=== PATIENT | male | born 1970 | race Caucasian/White ===

== ENCOUNTER 2019-01-06 07:25 | Inpatient (IN) ==
--- NOTE | 2018-12-30 08:50 | Anesthesiology Consultation ---
Date of Service December 30, 2018 Assessment & Plan (1) Encounter for pre-operative examination: Chart Review Chart Review: Acceptable Risk for Surgery and Patient NOT seen in Pre Admission Testing History Surgery Operation Date: 12/31/18 09:50 Proposed Procedures p Left Tibia Intramedullary Nail - Camilo Deluna DO Height/Weight Height: 6 ft 2 in Weight: 131.542 kg Allergies Allergy/AdvReac Type Severity Reaction Status Date / Time No Known Allergies Allergy Unknown Verified 12/29/18 14:47 Medications Home Medications Medication Instructions Recorded Confirmed Last Taken oxycodone 5 mg PO Q4H PRN #18 tab 12/28/18 12/29/18 Unknown Past Medical History Medical History Closed fracture of left fibula and tibia Kidney stones Obesity Past Surgical History Surgical History History of appendectomy Social History Smoking Status: Never smoker Do You Dip or Chew Tobacco: No Hx Alcohol Use: No Hx Substance Use: No substance use type: does not use Testing Laboratory Results 12/29/18 WBC 10.40 H/H 15.2/45.7 PLT 258
--- NOTE | 2019-01-05 21:55 | History and Physical Report ---
DATE OF ADMISSION: 01/06/2019 CHIEF COMPLAINT: Left tib-fib fracture. 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 He injured this a little bit over a week ago. He was getting out of his truck and slipped on the ice and fell. This was a work-related injury. He was taken to [facility] and then referred to Dr. Deluna, my partner. He is now referred to me. We did do a closed reduction and the results of that were a bit equivocal. We discussed treatment options and he has elected to proceed with surgical treatment. He has been pretty miserable as far as pain. Of note, the patient does have a history of an open fracture proximal to this fracture at the age of [age] treated with a cast. He has had no problems with infection with this. PAST MEDICAL HISTORY: Noncontributory. PAST SURGICAL HISTORY: Appendectomy. ALLERGIES: None. CURRENT MEDICATIONS: 1. Tylenol. 2. Oxycodone. SOCIAL HISTORY: He is a 48-year-old male. Works for [employer]. He is . FAMILY HISTORY: Noncontributory. REVIEW OF SYSTEMS: Negative for diabetes, neurologic problems, vascular problems, or bleeding disorders. Denies any chest pain or shortness of breath. No signs of DVT or PE. PHYSICAL EXAMINATION: GENERAL: Reveals a healthy, pleasant, middle-aged male. He looks to be in good health. HEENT: Benign. NECK: Supple. No lymphadenopathy. LUNGS: Clear to auscultation. HEART: Regular rate and rhythm. ABDOMEN: Soft, nontender, nondistended. EXTREMITIES: Grossly neurovascularly intact except as follows: Examination of the left lower extremity with the splint removed, just some moderate swelling distally. The proximal bone is a bit prominent and palpable in the soft tissues, but there is no real tenting of the skin. His compartments are pretty soft with some mild swelling. No fracture blisters. He can flex and extend his toes appropriately. He does have quite a bit of pain with any type of mobilization. X-RAYS: X-rays of the left tibia reveal a displaced tib-fib fracture at the distal third fracture. The fibular fracture is proximal. He does have a malunion proximal to this. There are no signs of underlying infection. ASSESSMENT: A 48-year-old gentleman with a left distal tib-fib fracture, somewhat displaced. It is kind of at the border of what is acceptable as far as treating conservatively/nonoperatively. He also has this previous malunion, which makes surgical treatment a bit more challenging. He has been pretty miserable the past week with pain and after further discussion he would like to have this fixed. PLAN: We discussed treatment options. We are going to take him to the operating room and do open reduction internal fixation. We cannot put a alvarez in this due to the malunion proximal, but we can plate this. The risks and benefits of plate and the tibia were explained to the patient including but not limited to DVT, PE, , infection, neurological injury, neurovascular injury, bleeding problem, pain, limited range of motion, stiffness, failure to relieve symptoms, incomplete relief of symptoms, nonunion, malunion, persistent pain, need for hardware removal. The patient understands and desires to proceed. Informed consent was obtained.. We will plan on DVT prophylaxis including aspirin twice a day. He will be nonweightbearing for 4 weeks postop. We will keep him overnight to make sure his pain is controlled in terms of therapy the following morning and hopefully discharge after that.
[~2019-01-06 07:25] MED LIST: ACETAMINOPHEN 500 MG TAB PO SCH; CEFAZOLIN 3000MG 65 ML IV SCH; CeleBREX 200 MG CAP PO SCH; FAMOTIDINE 20 MG TAB PO SCH; GABAPENTIN 300 MG x 3 PO SCH; LR 15ML/HR IV SCH; LR 60ML/HR IV SCH; METOCLOPRAMIDE HCL 10 MG TABLET PO SCH; SODIUM CHLORIDE 0.9% 1000ML IV SCH
--- NOTE | 2019-01-06 08:36 | History & Physical Bridge Note ---
Date of Service January 06, 2019 History & Physical Bridge Note I have examined the patient, reviewed the History & Physical and in the interval since the performance of the History & Physical I have noted the following changes of clinical significance: no changes noted
[2019-01-06] MEDS ORDERED: ONDANSETRON INJ 2 MG/ML 2 ML VIAL IV PRN ×2 (08:59→13:17)
[2019-01-06] MEDS ORDERED: DEXAMETHASONE SOD INJ 4 MG/ML VIAL IV PRN (08:59)
[2019-01-06] MEDS ORDERED: ATROPINE SULFATE 0.1 MG/ML 10ML SYR IV PRN (08:59)
[2019-01-06] MEDS ORDERED: MoRPHine SULFATE 10 MG/ML CARP/VIAL IV PRN (08:59)
[2019-01-06] MEDS ORDERED: KETOROLAC 30 MG/ML VIAL IV PRN ×2 (08:59→13:17)
[2019-01-06] MEDS ORDERED: HYDROmorphone INJ 2 MG/ML SYR/VIAL IV PRN (08:59)
[2019-01-06] MEDS ORDERED: ePHEDrine sulfate 50 MG/ML AMP IV PRN (08:59)
[2019-01-06] MEDS ORDERED: DEXAMETHASONE SOD INJ 4 MG/ML VIAL ONE (09:06)
[2019-01-06] MEDS ORDERED: GLYCOPYRROLATE 0.2 MG/ML VIAL ONE ×3 (09:06→11:50)
[2019-01-06] MEDS ORDERED: PROPOFOL IV EMULSION 10 MG/ML 20 ML VIAL IV ONE (09:06)
[2019-01-06] MEDS ORDERED: LIDOCAINE HCL 2% 2 ML VIAL/AMP(20MG/ML) INFIL ONE (09:06)
[2019-01-06] MEDS ORDERED: NEOSTIGMINE METHYLSULFATE 5 MG/5 ML SYR ONE (09:06)
[2019-01-06] MEDS ORDERED: ONDANSETRON INJ 2 MG/ML 2 ML VIAL ONE (09:06)
[2019-01-06] MEDS ORDERED: MIDAZOLAM HCL 1 MG/ML 2ML VIAL ONE (09:07)
[2019-01-06] MEDS ORDERED: fentaNYL citrate 100 MCG/2 ML VIAL ONE ×2 (09:07)
[2019-01-06] MEDS ORDERED: BUPIVACAINE/EPINEPHRINE 0.5% MPF 1:200,000 30 ML VIAL ONE (09:16)
[2019-01-06] MEDS ORDERED: ACETAMINOPHEN 500 MG TAB ONE (09:20)
[2019-01-06] MEDS ORDERED: CeleBREX 200 MG CAP ONE (09:20)
[2019-01-06] MEDS ORDERED: METOCLOPRAMIDE HCL 10 MG TABLET ONE (09:20)
[2019-01-06] MEDS ORDERED: GABAPENTIN 300 MG CAP ONE (09:20)
[2019-01-06] MEDS ORDERED: FAMOTIDINE 20 MG TAB ONE (09:20)
[2019-01-06] MEDS: CEFAZOLIN 3000MG 65 ML IV SCH ×2 (09:26→09:34)
[2019-01-06] MEDS ORDERED: HYDROmorphone INJ 2 MG/ML SYR/VIAL ONE (10:09)
[2019-01-06] MEDS ORDERED: LARYING-O-JET KIT (LTA) ONE (10:22)
[2019-01-06] MEDS ORDERED: ESMOLOL HCL INJ 10 MG/ML 10ML VIAL IV ONE (10:25)
[2019-01-06] MEDS ORDERED: ROCURONIUM BROMIDE 10 MG/ML 5 ML VIAL ONE (11:27)
--- NOTE | 2019-01-06 11:56 | Post Operative Brief Note ---
Immediate Post Op Note v1 Date of Surgery January 06, 2019 Pre & Post Diagnosis Operation Date: 01/06/19 10:00 Pre-Op Diagnosis: Left Distal Tibia Fracture and Fibula Fracture Post-Op Diagnosis: Left Distal Tibia Fracture and Fibula Fracture Procedure Operation Date: 01/06/19 10:00 Actual Procedures p Open Reduction Internal Fixation Left Tibia Shaft Fracture (Left) - Cristino Cobos MD Surgeon Cristino Cobos MD Accident Investigator Ovidio, PAC Estimated Blood Loss 30 Findings Consistent with Post-Op Diagnosis Fluids 1300 Anesthesia Type General Complications none Disposition Accompanied Patient To Recovery: No Disposition: Recovery Room
--- NOTE | 2019-01-06 11:59 | Fluoroscopy Report ---
FL tibia/fibula LT 2V HISTORY: 48 years-old Male LEFT TIB FIB FX ORIF ORIF of the left tibia COMPARISON: Left tibia and fibula radiographs 12/28/2018 TECHNIQUE: 3 spot fluoroscopic images about the left tibia and fibula were obtained utilizing 33.1 se conds fluoroscopy time FINDINGS: Status post placement of an elongated plate and screw fixation about the mid and distal tibial diaphy sis. There is improved near-anatomic alignment of the previously noted acute tibial fracture. Previou sly noted proximal fibular fracture is not imaged. IMPRESSION: Fluoroscopic assistance as above. Please see operative report for further details. The above report was generated using voice recognition software. It may contain grammatical, syntax o r spelling errors. Electronically signed by: García Carvalho M.D. 01/06/2019 11:58 AM
[2019-01-06] MEDS: fentaNYL citrate 100 MCG/2 ML VIAL IV PRN ×2 (12:17→12:27)
[2019-01-06] MEDS ORDERED: METOCLOPRAMIDE HCL INJ 5 MG/ML 2 ML VIAL IV PRN (13:17)
[2019-01-06] MEDS ORDERED: BISACODYL 10 MG SUPP PR PRN (13:17)
[2019-01-06] MEDS ORDERED: MoRPHine SULFATE 4 MG/ML 1 ML CARP\\VIAL IV PRN (13:17)
[2019-01-06] MEDS ORDERED: OXYCODONE HCL IR 5 MG TAB (IMMEDIATE RELEASE) PO PRN ×2 (13:17)
[2019-01-06] MEDS ORDERED: MAGNESIUM HYDROXIDE SUSP 30 ML UDC PO PRN (13:17)
[2019-01-06] MEDS ORDERED: ALUMINUM/MAGNESIUM SUSP 30 ML UDC PO PRN (13:17)
--- NOTE | 2019-01-06 13:19 | Anesthesiology Progress Note ---
Date of Service January 06, 2019 Anesthesia Post Procedure Vital Signs Vital Signs: Temp Pulse Pulse Pulse Resp BP BP 01/06/19 12:50 101 H 17 127/83 01/06/19 12:45 97 H 12 142/87 H 01/06/19 12:40 102 H 14 133/87 01/06/19 12:35 97 H 14 131/86 01/06/19 12:30 97 H 14 133/89 01/06/19 12:25 97 H 14 140/93 01/06/19 12:20 96 H 12 129/85 01/06/19 12:15 92 H 14 146/90 H 01/06/19 12:10 97 H 14 143/95 H 01/06/19 12:05 100 H 15 141/92 H 01/06/19 12:04 87 13 01/06/19 12:03 36.5 C 86 90 13 146/91 H 146/91 H 01/06/19 07:59 36.6 C 95 H 20 133/90 Pulse Ox 01/06/19 12:50 92 01/06/19 12:45 95 01/06/19 12:40 95 01/06/19 12:35 95 01/06/19 12:30 95 01/06/19 12:25 95 01/06/19 12:20 92 01/06/19 12:15 93 01/06/19 12:10 95 01/06/19 12:05 93 01/06/19 12:04 93 01/06/19 12:03 93 01/06/19 07:59 99 Pain Intensity Left Lower Leg: Pain Intensity: 4 Notes Mental Status: alert / awake / arousable and participated in evaluation Patient Amnestic to Procedure: Yes Nausea / Vomiting: adequately controlled Pain: adequately controlled Airway Patency, RR, SpO2: stable & adequate BP & HR: stable & adequate Hydration State: stable & adequate Anesthetic Complications: no major complications apparent
[2019-01-06] MEDS: ACETAMINOPHEN 500 MG TAB PO SCH ×2 (14:31→21:14)
[2019-01-06] MEDS: POTASSIUM CHLORIDE 10 MEQ in SODIUM CHLORIDE 0.9% 1000ML 1,000 ML IV SCH (14:31)
--- NOTE | 2019-01-06 15:32 | Operative Report ---
DATE OF OPERATION: 01/06/2019 SURGEON: Cristino Cobos MD AOC DIRECTOR COMBAT PLANS OFFICER: NINO Joaquin PREOPERATIVE DIAGNOSIS: Displaced left distal tib-fib fracture. POSTOPERATIVE DIAGNOSIS: Displaced left distal tib-fib fracture. PROCEDURE: Open reduction internal fixation of left displaced tibia fracture. COMPLICATIONS: None. ESTIMATED BLOOD LOSS: 30 mL. FLUID REPLACEMENT: 1300 mL crystalloid fluid replacement. ANESTHESIA: General. SPECIMENS: None. OPERATIVE INDICATIONS: The patient is a 48-year-old gentleman who sustained a work-related injury just a little over a week ago when he slipped while getting out of his vehicle. He had acute onset of pain and deformity. He was taken to the Emergency Room. X-rays revealed distal tib-fib fracture. He was treated with a closed reduction initially and was pretty manageable pain hwang. The closed reduction and alignment looked on the borderline of acceptable and after considering all things, we elected to proceed with surgical management. He does have a history of previous malunion and therefore not a candidate for IM nailing. OPERATIVE IMPLANTS: Operative implants consisted of: 1. A Synthes 13-hole 3.5 anterior lateral left tibial locking plate. 2. 3.5 fully threaded cortical screws x3. 3. 4.0 fully threaded cancellous screws x2. 4. 3.5 fully threaded cortical locking screws x10. OPERATIVE PROCEDURE: The patient was taken to the operating room, identified and placed on operative table in supine position. All contact areas were appropriately padded. IV antibiotics were provided by anesthesia team. A general anesthetic was implemented by anesthesia team. In the left lower extremity, a long leg cast was then removed and a left thigh tourniquet was then placed. We did shave the anterior aspect of his legs with the clippers. The left leg was then scrubbed with Hibiclens. It was then prepped with ChloraPrep and then draped in usual sterile fashion. Left leg was elevated and exsanguinated with Esmarch and tourniquet was placed at 300 mmHg. An anterior lateral approach to the distal tibia was then performed through a longitudinal incision beginning about a cm lateral to the anterior crest of the tibia and extending distally over the top of the dorsal forefoot. Sharp dissection was carried out through subcutaneous tissue down to the fascia. The fascia was then incised longitudinally just lateral to the anterior border of the tibial cortex and extended distally and medial to the tibialis anterior tendon. All extensor tendons and neurovascular bundles were retracted laterally. I exposed the fracture site which was quite easily done. I did debride the fracture site of some hematoma as well as some soft tissue and periosteum. We then applied some traction and reduced the fracture anatomically and held with 2 reduction clamps. I fixed it with two 3.5 fully threaded cortical screws placed in a lag fashion from anterior to posterior. I then selected an anterior lateral distal tibial locking plate from the Synthes set with a 13-hole configuration. I fixed it distally with two 4.0 fully threaded cancellous screws to fix it down to the bone and then proximally with a single 3.5 fully threaded cortical screw to snug the proximal plate to the bone. I then placed 5 additional locking screws distally through the plate to provide distal fixation and placed 4 additional 3.5 locking screws proximally. It provided excellent fixation for the fracture. The fracture was anatomically reduced and aligned. I then brought in x-ray and all screws were appropriate length. The fracture was anatomically aligned. Attention was then drawn toward closing. The wound was irrigated with copious amounts of normal saline. I did inject locally with 30 mL of 0.5% Marcaine with epinephrine. The extensor retinaculum distally was then closed with 2-0 Vicryl suture in a [id number] fashion. I cannot close the anterior compartment of the leg fascia. The tourniquet was then let down for a tourniquet time of 76 minutes. Hemostasis was assured using electrocautery. The wound was once again irrigated. Subcutaneous tissues were then closed with 2-0 Vicryl suture in a buried interrupted fashion. Skin was closed with 3-0 nylon suture in simple fashion. Leg was then cleaned and dried and a sterile dressing composed of Xeroform, 4 x 4, sterile cast padding and a well-padded posterior and stirrup splint were applied. The patient then brought out of general anesthesia and transferred to the recovery room in stable condition. The patient tolerated the procedure well with no complications. All needle and sponge counts were correct at the end of the operation. I attest to the content of the Intraoperative Record and any orders documented therein. Any exception s are noted below.
[2019-01-06] MEDS ORDERED: SODIUM CHLORIDE 0.9% 1000ML IV SCH (17:00)
[2019-01-06] MEDS: CEFAZOLIN 2000MG 2,000 MG/15 ML SYR IV SCH (18:16)
[2019-01-06] MEDS ORDERED: SENNA 8.6 MG TAB PO SCH (21:00)
[2019-01-06] MEDS: DOCUSATE SODIUM 100 MG CAP PO SCH (21:13)
[2019-01-06] MEDS: ASPIRIN 81 MG ECTAB PO SCH (21:14)
[2019-01-07] MEDS: CEFAZOLIN 2000MG 2,000 MG/15 ML SYR IV SCH (00:04)
[2019-01-07] MEDS: POTASSIUM CHLORIDE 10 MEQ in SODIUM CHLORIDE 0.9% 1000ML 1,000 ML IV SCH (00:05)
[2019-01-07] MEDS ORDERED: Nursing to Pharmacy Communication ONE (03:36)
--- NOTE | 2019-01-07 08:15 | Progress Note ---
DATE: 01/07/2019 SUBJECTIVE: A 48-year-old gentleman postop day 1 from ORIF of left distal tibia fracture. He is doing quite well. Pain is controlled. No chest pain or shortness of breath. Not feeling dizzy or lightheaded. OBJECTIVE: VITAL SIGNS: Temperature 36.5. Vital signs stable. PHYSICAL EXAMINATION: GENERAL: Reveals a pleasant, middle-aged male. He is sitting up in bed, looks pretty comfortable. EXTREMITIES: Examination of left leg reveals the dressing to be clean, dry, and intact. He can dorsiflex and plantarflex his toes appropriately. He is neurologically intact. ASSESSMENT: A 48-year-old gentleman postop day 1 from left tibia ORIF, doing well. Pain is controlled. He is neurologically intact. PLAN: 1. DVT prophylaxis including thigh-high TEDs, SCDs, and aspirin twice a day. 2. PT/OT. He is nonweightbearing on his left leg for the next 4 weeks. 3. PT, OT. We will give him some therapy and make sure he is using the crutches appropriately. 4. Disposition: Plan to discharge to home and I will follow him back in 2 weeks.
[2019-01-07] MEDS: DOCUSATE SODIUM 100 MG CAP PO SCH (08:21)
[2019-01-07] MEDS: ASPIRIN 81 MG ECTAB PO SCH (08:22)
[2019-01-07] MEDS ORDERED: MULTIVITAMIN TAB PO SCH (09:00)
[2019-01-07] MEDS ORDERED: PANTOprazole 40 MG TAB PO SCH (09:00)
[2019-01-07] MEDS ORDERED: ACETAMINOPHEN 500 MG TAB PO SCH (10:00)
--- NOTE | 2019-01-08 16:27 | Discharge Summary ---
ADMITTING PHYSICIAN AND SURGEON: Cristino Cobos MD. ADMITTING DIAGNOSIS: Displaced left distal tibial-fibular fracture. PROCEDURE PERFORMED: Open reduction and internal fixation of a left displaced tibia fracture. SECONDARY DIAGNOSIS: Noncontributory. CONSULTS: None obtained. HISTORY AND PHYSICAL EXAMINATION: Well-documented in the patient's chart. HOSPITAL COURSE: The patient was admitted on 01/06/2019, underwent an open reduction and internal fixation of a displaced tibia fracture. He tolerated the procedure well. There were no complications. He was transferred to the PACU postoperatively and later to the orthopedic floor for further care. He was given Ancef for antibiotic prophylaxis, FARHAN stockings and SCDs and aspirin for DVT prophylaxis. Vital signs were monitored throughout his hospital stay and remained stable. He did not require any blood transfusions. There were no complications. By postoperative day 1, he was tolerating a regular diet, pain was controlled with oral pain medicine. On postoperative day 1, he was discharged home. He was given printed discharge instructions including new prescriptions for extra-strength Tylenol, aspirin and oxycodone. He was instructed also to continue nonweightbearing to the left leg for the next 4 weeks. Keep the splint, clean and dry and in place until followup appointment, elevate his left leg as much as possible. Follow up in approximately 2 weeks postoperatively or sooner if there are any problems or concerns.
== END 2019-01-07 11:51 | disposition home or self-care (01) | DRG 494 ==
LOC: ASU 07:25 → 3E 12:03

== ENCOUNTER 2020-12-22 16:52 | Inpatient (IN) ==
--- OUTSIDE RECORDS SUMMARY | 2020-12-22 16:55 | External Medical Summary | Continuity of Care Document ---
:1970 Author Name Shirley Gay, Provider Address Unavailable Unavailable , Care Team Providers Name Role Phone NonMNPG MThierry, Provider Unavailable [email or web address], UNKNOWN Unavailable Unavailable Problems Active medical history not documented Allergies and Adverse Reactions Allergy history not documented Medications Medications not documented Procedures Procedures not documented Immunizations Immunizations not documented Plan of Treatment Planned Observations Planned Goals not documented Results No Known Results Results not documented
--- OUTSIDE RECORDS SUMMARY | 2020-12-22 16:55 | External Medical Summary | Continuity of Care Document ---
:1970 Author Name Shirley Gay, Provider Address Unavailable Unavailable , Care Team Providers Name Role Phone NonMNPG MThierry, Provider Unavailable [email or web address], UNKNOWN Unavailable Unavailable Problems Active medical history not documented Allergies and Adverse Reactions Allergy history not documented Medications Medications not documented Procedures Procedures not documented Immunizations Immunizations not documented Plan of Treatment Planned Observations Planned Goals not documented Results No Known Results Results not documented
--- NOTE | 2020-12-22 19:14 | Emergency Department Note ---
Impression & Plan Diverticulitis, Abdominal pain ED Provider Note NAME: CHATO LEYVA AGE: 50 SEX: M : 1970 ARRIVES VIA: Walk-In INFORMANT: Patient, ED PROVIDER(S): Nicolas Cleaning DO CHIEF COMPLAINT: Abdominal pain HPI: The patient is a 50-year-old male who presented to the emergency department for an evaluation of abdominal pain. The patient describes left lower quadrant abdominal pain which began yesterday. He states the pain began yesterday in the morning. Initially it was vague and appeared to be on his left side. It now is localized in the left lower quadrant. He states the pain is worsened with sitting down and also relieved somewhat with standing up and stretching. He does not feel any bulging in his left groin or testicular pain. He states that he had a kidney stone once with the pain is not completely the same. He denies having any fever or vomiting. He said no diarrhea. He did not see his provider for this pain. The pain continued to worsen so he took [id number] pain medication with only little relief. The patient has never had a history of diverticulitis in the past. ROS: See above HPI for pertinent positives & negatives. A total of 10 systems reviewed and were otherwise negative. PAST MEDICAL HISTORY: See Below PAST SURGICAL HISTORY: See Below FAMILY HISTORY: See Below SOCIAL HISTORY: See Below HOME MEDICATIONS: See Below ALLERGIES: See Below VITALS: See Below PHYSICAL EXAMINATION: GENERAL: Patient is awake alert in no acute distress patient is resting comf ortably and showing no signs of anxiety EYES: The conjunctivae are clear. The pupils are round and reactive. EARS, NOSE, MOUTH AND THROAT: The nose is without any evidence of any deformity. Mucous membranes are moist. Tongue is midline. NECK: The neck is nontender and supple. RESPIRATORY: Normal respiratory effort is noted there is no evidence of wheezing rhonchi or rales CARDIOVASCULAR: Tachycardic rate with regular rhythm was noted. There was no definite murmur. GASTROINTESTINAL: The abdomen was mildly distended but soft. There was significant left lower quadrant tenderness palpation. BACK: No midline tenderness or or step-off noted range of motion in flexion extension as well as rotation no signs of muscle spasm noted MUSCULOSKELETAL/EXTREMITIES: There is no evidence of gross deformity full range of motion is noted in the hips and shoulders. SKIN: There is no obvious evidence of any rash. There are no petechiae, pallor or cyanosis noted. NEUROLOGIC: Patient is awake alert and oriented x3. MEDICAL DECISION MAKING: The patient is a 50-year-old male who presented to the emergency department for an evaluation of left-sided abdominal pain. The patient's history and physical exam appear to be consistent with diverticulitis. He was treated with IV fluids and IV antibiotics. The patient's CAT scan appear to show diverticulitis with microperforation. There was no definite abscess formation. The patient was reevaluated multiple times. He continued to have improvement of his symptoms as well as his tachycardia. Given the findings of microperforation I discussed his case with the on-call [facility]. They have agreed to evaluate the patient in the emergency department for further management and disposition. The patient was agreeable to inpatient management. Triage Nursing notes reviewed. Prior medical records reviewed Vital Signs: reviewed and remarkable for tachycardia. Differential diagnosis: Appendicitis, testicular torsion, infections, diverticulitis, UTI, obstruction, mesenteric ischemia, aortic pathology, inflammatory bowel disease, renal colic, PUD, pancreatitis, biliary pathology, hernia, volvulus, constipation, as well as other pathologies. ER treatment provided: See below Diagnostics interpreted by me: ECG: none Cardiac Monitoring: An order was placed for continuous cardiac monitoring. The monitor shows a rate of 108 bpm with sinus tachycardia rhythm. Laboratory studies: As stated above and show below. Imaging studies: See below Consultation(s): 2000: I discussed this case with Dr. Fenrandez who is on-call for the [facility]. He will evaluate the patient in the emergency department for further management and disposition. Past Med/Surg History Medical History Closed fracture of left fibula and tibia Kidney stones Obesity Surgical History History of appendectomy Social History Smoking Status: Never smoker Second Hand Exposure: No; Hx Alcohol Use: No Hx Substance Use: No Preferred Language: Welsh Communication Ability: Effective Educational/Development Assistant Required: No Beliefs That Will Affect Care: None Current Living Situation: Spouse Feels Safe at Home: Yes Assistive Devices: Glasses and Walker Allergies Allergies Allergy/AdvReac Type Severity Reaction Status Date / Time No Known Allergies Allergy Unknown Verified 12/22/20 20:36 Home Meds Home Medications Medication Instructions Recorded Confirmed No Known Home Medications 12/22/20 12/22/20 Results & Data (ED) Vital Signs Vital Signs - 24 hr 12/22/20 17:03 12/22/20 20:16 12/22/20 20:20 Temperature 36.8 C Temperature Source Oral Pulse Rate 135 H Pulse Rate [Finger] 98 H Respiratory Rate 18 18 Respiratory Effort / Characteristics Non-Labored Spontaneous Non-Labored Spontaneous Respiratory Depth Normal Normal Blood Pressure 143/114 H Blood Pressure [Right Arm] 137/89 Blood Pressure Mean 123 Blood Pressure Mean [Right Arm] 105 Blood Pressure Position Sitting Pulse Oximetry 97 98 98 Oxygen Delivery Method Room Air Room Air Room Air Sepsis Recent Fever Within 48 Hours No Sepsis New/Unexplained Change in Mental Status N/A Sepsis Action Taken by Nursing No Action Required Home Medications Current Medication List: was personally reviewed by me Laboratory Data Attestation: I reviewed the patient's lab results. Result diagrams: 12/22/20 19:06 12/22/20 19:06 Lab Results 12/22/20 12/22/20 12/22/20 Range/Units 19:06 19:06 21:15 WBC 13.73 H (4.8-10.8) K/uL RBC 5.29 (4.7-6.1) M/uL Hgb 16.2 (14.0-18.0) g/dL Hct 46.6 (42-52) % MCV 88.1 (80-100) fL MCH 30.6 (25-34) pg MCHC 34.8 (32-36) g/dL RDW Std Deviation 44.4 (36.4-46.3) fL RDW Coeff of Stef 13.7 (11.5-14.5) % Plt Count 291 (130-400) K/uL MPV 10.1 (7.4-10.4) fL Immature Gran % (Auto) 0.1 % Neut % (Auto) 79.6 % Lymph % (Auto) 10.8 % Lewis % (Auto) 9.0 % Eos % (Auto) 0.4 % Baso % (Auto) 0.1 % Neut # (Auto) 10.94 H (1.4-6.5) K/uL Lymph # (Auto) 1.48 (1.2-3.4) K/uL Lewis # (Auto) 1.23 H (0.11-0.59) K/uL Eos # (Auto) 0.05 (0-0.5) K/uL Baso # (Auto) 0.01 (0-0.2) K/uL Immature Gran # (Auto) 0.02 (0.00-0.02) K/uL Sodium 137 (136-145) mmol/L Potassium 4.1 (3.5-5.1) mmol/L Chloride 106 (98-107) mmol/L Carbon Dioxide 25 (21-32) mmol/L Anion Gap 7.0 (3-11) BUN 9 (7-18) mg/dl Creatinine 1.01 (0.6-1.4) mg/dl Est Cr Clr Drug Dosing Not Reportable Est GFR ( Amer) 100.8 Est GFR (Non-Af Amer) 86.9 BUN/Creatinine Ratio 8.6 L (10-20) Glucose 100 H (70-99) mg/dl Calcium 9.4 (8.5-10.1) mg/dl Total Bilirubin 1.1 H (0.2-1) mg/dl AST 10 L (15-37) U/L ALT 17 (12-78) U/L Alkaline Phosphatase 80 (45-117) U/L Total Protein 8.8 H (6.4-8.2) gm/dl Albumin 4.0 (3.4-5.0) gm/dl Globulin 4.8 H (2.5-4.0) gm/dl Albumin/Globulin Ratio 0.8 L (0.9-2) Lipase 106 (73-393) U/L COVID-19 Eval [facility] SARS-CoV-2, RNA, NAAT (NEGATIVE) 12/22/20 Range/Units 21:15 WBC (4.8-10.8) K/uL RBC (4.7-6.1) M/uL Hgb (14.0-18.0) g/dL Hct (42-52) % MCV (80-100) fL MCH (25-34) pg MCHC (32-36) g/dL RDW Std Deviation (36.4-46.3) fL RDW Coeff of Stef (11.5-14.5) % Plt Count (130-400) K/uL MPV (7.4-10.4) fL Immature Gran % (Auto) % Neut % (Auto) % Lymph % (Auto) % Lewis % (Auto) % Eos % (Auto) % Baso % (Auto) % Neut # (Auto) (1.4-6.5) K/uL Lymph # (Auto) (1.2-3.4) K/uL Lewis # (Auto) (0.11-0.59) K/uL Eos # (Auto) (0-0.5) K/uL Baso # (Auto) (0-0.2) K/uL Immature Gran # (Auto) (0.00-0.02) K/uL Sodium (136-145) mmol/L Potassium (3.5-5.1) mmol/L Chloride (98-107) mmol/L Carbon Dioxide (21-32) mmol/L Anion Gap (3-11) BUN (7-18) mg/dl Creatinine (0.6-1.4) mg/dl Est Cr Clr Drug Dosing Est GFR ( Amer) Est GFR (Non-Af Amer) BUN/Creatinine Ratio (10-20) Glucose (70-99) mg/dl Calcium (8.5-10.1) mg/dl Total Bilirubin (0.2-1) mg/dl AST (15-37) U/L ALT (12-78) U/L Alkaline Phosphatase (45-117) U/L Total Protein (6.4-8.2) gm/dl Albumin (3.4-5.0) gm/dl Globulin (2.5-4.0) gm/dl Albumin/Globulin Ratio (0.9-2) Lipase (73-393) U/L COVID-19 Eval Order SARS-CoV-2, RNA, NAAT NEGATIVE (NEGATIVE) Administered Medications Discontinued Medications Sodium Chloride (Nss 1000ml) 1,000 mls @ 999 mls/hr IV .Q1H1M LISA Stop: 12/22/20 20:15 Last Infusion: 12/22/20 20:27 Dose: 0 mls/hr Documented by: [id number] Admin: 12/22/20 19:22 Dose: 999 mls/hr Documented by: [id number] Piperacillin Sod/Tazobactam Sod (Zosyn) 4.5 gm in 120 mls @ 240 mls/hr IV NOW ONE Stop: 12/22/20 20:18 Last Infusion: 12/22/20 20:45 Dose: 0 mls/hr Documented by: [id number] Admin: 12/22/20 20:15 Dose: 240 mls/hr Documented by: [id number] Ioversol (Optiray 320 125ml) 119 ml IV ONCE ONE Stop: 12/22/20 19:37 Last Admin: 12/22/20 19:36 Dose: 119 ml Documented by: [id number] Imaging Data Radiologist's Impression: Patient: CHATO LEYVA Admit Date: 12/22/20 MR#: [id number] Address1: [address] [place] [address] Acct ID:[id number] Address2: Date: 1970 [facility] Zip: [place] [address] Age: 50 Location: ED Sex: M Room/Bed: Att Phy: Diagnosis: LEFT ABD PAIN Sandy Phy: PCP,NO Service Date: 12/22/20 Fam Phy: Interpreting Phy: Wale Tran MD Admit Phy: Ordering Phy: Nicolas Cleaning, cc: ~ CT SCAN OF THE ABDOMEN AND PELVIS WITH IV CONTRAST CLINICAL HISTORY: Left lower quadrant abdominal pain. COMPARISON STUDY: No priors. TECHNIQUE: Following the IV administration of 119 cc of Optiray 320, CT scan of the abdomen and pelvis is performed from the lung bases to the proximal femora. Images are reviewed in the axial, sagittal, and coronal planes. IV contrast was administered without complication. A dose lowering technique was utilized adhering to the principles of ALARA. CT DOSE: 1854.67 mGy.cm FINDINGS: Lung bases: The heart is normal in size and without pericardial effusion. The lung bases are clear noting bibasilar atelectasis. Liver: The contrast-enhanced liver is enlarged, measuring 22.5 cm in length. The liver demonstrates diffusely diminished attenuation consistent with hepatic steatosis. There is no intrahepatic biliary ductal dilatation. The hepatic veins and portal veins are patent. Gallbladder: There are calcified gallstones with no CT evidence of acute cholecy stitis. Spleen: Normal in size and attenuation. Pancreas: Unremarkable. Adrenal glands: Unremarkable. Kidneys: The contrast enhanced kidneys are normal in size and without hydronephrosis. The kidneys enhance symmetrically. A subcentimeter cortical hypodensity in the right lower pole likely represents a cyst but is too small for definitive characterization. Abdominal vasculature: The abdominal aorta is normal in course and caliber noting mild atherosclerotic calcification. Bowel: There is mild to moderate colonic diverticulosis. There is wall thickening with pericolonic inflammation and fluid involving the distal descending colon consistent with acute diverticulitis. No organized fluid collection is seen to indicate abscess. There is no bowel obstruction. A duodenal diverticulum is noted. The appendix is not identified and reported surgically absent. Peritoneum: Tiny foci of intraperitoneal free air are identified adjacent to the descending colon seen on image #331. There is trace free fluid in the pelvis. There is a small fat-containing umbilical hernia. Lymphadenopathy: None. Pelvic viscera: The bladder, prostate, and seminal vesicles are normal as imaged. Skeletal structures: No lytic or blastic lesions are seen. IMPRESSION: 1. There is mild to moderate colonic diverticulosis with evidence of acute diverticulitis of the distal descending colon. 2. Tiny foci of intraperitoneal free air are identified adjacent to the descending colon. 3. No organized fluid collection is seen to indicate abscess. 4. Hepatomegaly and hepatic steatosis. 5. Cholelithiasis. 6. Additional findings as above. ACT 112: Positive. There are findings on this exam that require communication between the performing entity and the patient following Patient Test Result Information Act ([place] Act 112) guidelines. Electronically signed by: Wale Tran M.D. 12/22/2020 7:57 PM Dictated: 12/22/201950 Transcribed: 12/22/201950 Blood Pressure Blood Pressure Findings: Normal blood pressure Discharge Plan Visit Data Chief Complaint: Abdominal Pain Stated Complaint: LEFT ABD PAIN ED Provider: Nicolas Cleaning Discharge Problem: Diverticulitis, Abdominal pain Patient Disposition: Being Evaluated by Hospitalist Condition: Good Forms Stand Alone Forms: My [employer] Prescriptions Prescriptions: No Action No Known Home Medications RF: 0 Referrals Referrals: PCP,NO [Primary Care Provider] -
[2020-12-22] MEDS ORDERED: SODIUM CHLORIDE 0.9% 1000ML 1,000 ML IV SCH (19:15)
[2020-12-22 19:18] LABS: Basophils # (auto) 0.01 K/uL (0-0.2); Basophils % (auto) 0.1 %; Eosinophils # (auto) 0.05 K/uL (0-0.5); Eosinophils % (auto) 0.4 %; Hematocrit (blood only) 46.6 % (42-52); Hemoglobin 16.2 g/dL (14.0-18.0); Immature Granulocytes # (auto) 0.02 K/uL (0.00-0.02); Immature Granulocytes % (auto) 0.1 %; Lymphocytes # (auto) 1.48 K/uL (1.2-3.4); Lymphocytes % (auto) 10.8 %; Mean Corpuscular Hemoglobin 30.6 pg (25-34); Mean Corpuscular Hgb Conc 34.8 g/dL (32-36); Mean Corpuscular Volume 88.1 fL (80-100); Mean Platelet Volume 10.1 fL (7.4-10.4); Monocytes # (auto) 1.23 K/uL (0.11-0.59); Neutrophils # (auto) 10.94 K/uL (1.4-6.5); Neutrophils % (auto) 79.6 %; Platelet Count 291 K/uL (130-400); RDW Coefficient of Variation 13.7 % (11.5-14.5); RDW Standard Deviation 44.4 fL (36.4-46.3); Red Blood Count 5.29 M/uL (4.7-6.1); White Blood Count 13.73 K/uL (4.8-10.8)
[2020-12-22 19:34] LABS: Alanine Aminotransferase 17 U/L (12-78); Aspartate Aminotransferase 10 U/L (15-37); BUN Creatinine Ratio 8.6 (10-20); Blood Urea Nitrogen 9 mg/dl (7-18); Calcium 9.4 mg/dl (8.5-10.1); Carbon Dioxide 25 mmol/L (21-32); Chloride 106 mmol/L (98-107); Est GFR (African American) 100.8; Est GFR (Non-African American) 86.9; Glucose 100 mg/dl (70-99); Lipase 106 U/L (73-393); Potassium 4.1 mmol/L (3.5-5.1); Sodium 137 mmol/L (136-145)
[2020-12-22] MEDS ORDERED: OPTIRAY 320 125ml IV ONE (19:36)
[2020-12-22 19:37] LABS: Albumin Globulin Ratio 0.8 (0.9-2); Alkaline Phosphatase 80 U/L (45-117); Bilirubin,Total 1.1 mg/dl (0.2-1); Globulin 4.8 gm/dl (2.5-4.0); Total Protein 8.8 gm/dl (6.4-8.2)
[2020-12-22] MEDS ORDERED: PIPERACILL/TAZOBAC CONSULT ACTIVE PRN ×2 (19:49→22:19)
[2020-12-22] MEDS ORDERED: PIPERACILLIN/TAZOBACTAM 4.5 GM/120 ML BAG IV ONE (19:49)
--- NOTE | 2020-12-22 19:58 | CT Scan Report ---
CT SCAN OF THE ABDOMEN AND PELVIS WITH IV CONTRAST CLINICAL HISTORY: Left lower quadrant abdominal pain. COMPARISON STUDY: No priors. TECHNIQUE: Following the IV administration of 119 cc of Optiray 320, CT scan of the abdomen and pelv is is performed from the lung bases to the proximal femora. Images are reviewed in the axial, sagitta l, and coronal planes. IV contrast was administered without complication. A dose lowering technique w as utilized adhering to the principles of ALARA. CT DOSE: 1854.67 mGy.cm FINDINGS: Lung bases: The heart is normal in size and without pericardial effusion. The lung bases are clear no ting bibasilar atelectasis. Liver: The contrast-enhanced liver is enlarged, measuring 22.5 cm in length. The liver demonstrates d iffusely diminished attenuation consistent with hepatic steatosis. There is no intrahepatic biliary d uctal dilatation. The hepatic veins and portal veins are patent. Gallbladder: There are calcified gallstones with no CT evidence of acute cholecystitis. Spleen: Normal in size and attenuation. Pancreas: Unremarkable. Adrenal glands: Unremarkable. Kidneys: The contrast enhanced kidneys are normal in size and without hydronephrosis. The kidneys enh ance symmetrically. A subcentimeter cortical hypodensity in the right lower pole likely represents a cyst but is too small for definitive characterization. Abdominal vasculature: The abdominal aorta is normal in course and caliber noting mild atheroscleroti c calcification. Bowel: There is mild to moderate colonic diverticulosis. There is wall thickening with pericolonic in flammation and fluid involving the distal descending colon consistent with acute diverticulitis. No o rganized fluid collection is seen to indicate abscess. There is no bowel obstruction. A duodenal dive rticulum is noted. The appendix is not identified and reported surgically absent. Peritoneum: Tiny foci of intraperitoneal free air are identified adjacent to the descending colon see n on image #331. There is trace free fluid in the pelvis. There is a small fat-containing umbilical h ernia. Lymphadenopathy: None. Pelvic viscera: The bladder, prostate, and seminal vesicles are normal as imaged. Skeletal structures: No lytic or blastic lesions are seen. IMPRESSION: 1. There is mild to moderate colonic diverticulosis with evidence of acute diverticulitis of the dist al descending colon. 2. Tiny foci of intraperitoneal free air are identified adjacent to the descending colon. 3. No organized fluid collection is seen to indicate abscess. 4. Hepatomegaly and hepatic steatosis. 5. Cholelithiasis. 6. Additional findings as above. ACT 112: Positive. There are findings on this exam that require communication between the performing entity and the patient following Patient Test Result Information Act ([place] Act 112) guidelines. Electronically signed by: Wale Tran M.D. 12/22/2020 7:57 PM
--- NOTE | 2020-12-22 21:26 | History & Physical Report ---
Date of Service December 22, 2020 Assessment & Plan (1) Diverticulitis of intestine with perforation without bleeding: Moderate colonic diverticulosis/acute diverticulitis of distal descending colon/tiny foci of intraperitoneal free air adjacent to descending colon- Admit to [facility] NPO NSS + KCl 20 mEq 100 mils per hour Zosyn 4.5 g IV every 8 hours Famotidine 20 mg IV every 12 hours Consult general surgery if clinically worsens. Present on Admission?: Yes (2) Free intraperitoneal air: See above Present on Admission?: Yes (3) Umbilical hernia: (4) Duodenal diverticulum: Present on Admission?: Yes History of Present Illness Chief Complaint: The patient presents to the emergency department due to the development of left lower quadrant abdominal pain. 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 He completed his job there, and traveled back to [place] last evening, where he continued to have pain that was worse with movement. When he awoke this morning, the pain was persistent, and came to the ED this evening for evaluation. He reports having 1 piece of pizza last evening, and had half a bowl of cereal this morning. He had no previous occurrence of the symptoms. He has had no associated fevers or chills, nausea or vomiting, or blood in stool. Work-up in the emergency department included a CT scan of abdomen and pelvis which showed mild to moderate colonic diverticulosis with evidence of acute diverticulitis of the distal descending colon, with a tiny foci of intraperitoneal free air identified adjacent to the descending colon. There was also hepatomegaly and hepatic steatosis, and cholelithiasis. There is also noted a duodenal diverticulum, and fat-containing umbilical hernia. Significant laboratories: WBC 13.73 with left shift, glucose 100, total bilirubin 1.1, and COVID-19 negative. Allergies Allergy/AdvReac Type Severity Reaction Status Date / Time No Known Allergies Allergy Unknown Verified 12/22/20 20:36 Home Medications Medication Instructions Recorded Confirmed Type No Known Home Medications 12/22/20 12/22/20 History Past Med/Surg History Medical History Closed fracture of left fibula and tibia Kidney stones Obesity Surgical History History of appendectomy Social History Smoking Status: Never smoker Second Hand Exposure: No; Do You Dip or Chew Tobacco: No; Hx Alcohol Use: No Hx Substance Use: No Preferred Language: Micronesian Communication Ability: Effective Product Mgr Required: No Beliefs That Will Affect Care: None Current Living Situation: Spouse Other Information That Helps Us Care for You: No Feels Safe at Home: Yes Safety Concerns: Feels Safe At This Time Assistive Devices: None Review of Systems Review of Systems: The patient denies chest pain, palpitations, shortness of breath, dyspnea on exertion, cough, lower extremity swelling, sore throat, fevers, chills, sweats, nausea, vomiting, diarrhea, constipation, blood in urine or stool, dysuria, urinary frequency or urgency, lightheadedness, dizziness, headache, memory loss, loss of consciousness, rash, abnormal bruising or bleeding, imbalance, focal or generalized weakness, numbness or tingling in arms or legs, generalized arthralgias or myalgias, back or neck pain, or night sweats. The review of systems is otherwise negative other than for that already noted above, and at least 10 systems have been reviewed. Physical Exam Physical Exam: The patient is awake, alert and oriented 3, well developed and well nourished, normocephalic and atraumatic, lying in bed and in no acute distress. HEENT--PERRL, EOMI, mucous membranes and oropharynx mildly dry. Neck--supple. No JVD. No bruits. Thyroid normal, trachea midline, no adenop athy. Heart--normal S1 and S2. No murmurs, rubs or gallops. Lungs--clear bilaterally, no respiratory distress, no accessory muscle use. Abdomen--normal bowel sounds and soft. Tender left lower quadrant. Nondistended Extremities--no cyanosis or clubbing. No edema. Dermatologic--normal skin turgor, normal color, no abnormal lymph nodes, no rash. Neurologic--cranial nerves II through XII grossly intact. Rheumatologic--normal range of motion. Psychiatric--normal affect. Results & Data Results & Data ([facility]) Vital Signs (Past 12 Hours) Vital Signs Temp Pulse Pulse Resp BP BP Pulse Ox 12/22/20 20:20 98 H 18 137/89 98 12/22/20 20:16 98 12/22/20 17:03 98.2 F 135 H 18 143/114 H 97 Laboratory Results Laboratory Results WBC 13.73 K/uL (4.8-10.8) H 12/22/20 19:06 RBC 5.29 M/uL (4.7-6.1) 12/22/20 19:06 Hgb 16.2 g/dL (14.0-18.0) 12/22/20 19:06 Hct 46.6 % (42-52) 12/22/20 19:06 MCV 88.1 fL (80-100) 12/22/20 19:06 MCH 30.6 pg (25-34) 12/22/20 19:06 MCHC 34.8 g/dL (32-36) 12/22/20 19:06 RDW Std Deviation 44.4 fL (36.4-46.3) 12/22/20 19:06 RDW Coeff of Stef 13.7 % (11.5-14.5) 12/22/20 19:06 Plt Count 291 K/uL (130-400) 12/22/20 19:06 MPV 10.1 fL (7.4-10.4) 12/22/20 19:06 Immature Gran % (Auto) 0.1 % 12/22/20 19:06 Neut % (Auto) 79.6 % 12/22/20 19:06 Lymph % (Auto) 10.8 % 12/22/20 19:06 Bowie % (Auto) 9.0 % 12/22/20 19:06 Eos % (Auto) 0.4 % 12/22/20 19:06 Baso % (Auto) 0.1 % 12/22/20 19:06 Neut # (Auto) 10.94 K/uL (1.4-6.5) H 12/22/20 19:06 Lymph # (Auto) 1.48 K/uL (1.2-3.4) 12/22/20 19:06 Bowie # (Auto) 1.23 K/uL (0.11-0.59) H 12/22/20 19:06 Eos # (Auto) 0.05 K/uL (0-0.5) 12/22/20 19:06 Baso # (Auto) 0.01 K/uL (0-0.2) 12/22/20 19:06 Immature Gran # (Auto) 0.02 K/uL (0.00-0.02) 12/22/20 19:06 Sodium 137 mmol/L (136-145) 12/22/20 19:06 Potassium 4.1 mmol/L (3.5-5.1) 12/22/20 19:06 Chloride 106 mmol/L (98-107) 12/22/20 19:06 Carbon Dioxide 25 mmol/L (21-32) 12/22/20 19:06 Anion Gap 7.0 (3-11) 12/22/20 19:06 BUN 9 mg/dl (7-18) 12/22/20 19:06 Creatinine 1.01 mg/dl (0.6-1.4) 12/22/20 19:06 Est Cr Clr Drug Dosing Not Reportable 12/22/20 19:06 Est GFR ( Amer) 100.8 12/22/20 19:06 Est GFR (Non-Af Amer) 86.9 12/22/20 19:06 BUN/Creatinine Ratio 8.6 (10-20) L 12/22/20 19:06 Glucose 100 mg/dl (70-99) H 12/22/20 19:06 Calcium 9.4 mg/dl (8.5-10.1) 12/22/20 19:06 Total Bilirubin 1.1 mg/dl (0.2-1) H 12/22/20 19:06 AST 10 U/L (15-37) L 12/22/20 19:06 ALT 17 U/L (12-78) 12/22/20 19:06 Alkaline Phosphatase 80 U/L (45-117) 12/22/20 19:06 Total Protein 8.8 gm/dl (6.4-8.2) H 12/22/20 19:06 Albumin 4.0 gm/dl (3.4-5.0) 12/22/20 19:06 Globulin 4.8 gm/dl (2.5-4.0) H 12/22/20 19:06 Albumin/Globulin Ratio 0.8 (0.9-2) L 12/22/20 19:06 Lipase 106 U/L (73-393) 12/22/20 19:06 Urine Color Dark Yellow 12/22/20 22:28 Urine Appearance Clear (Clear) 12/22/20 22:28 Urine pH 6.5 (4.5-7.5) 12/22/20 22:28 Ur Specific Raymond > 1.045 (1.000-1.030) H 12/22/20 22:28 Urine Protein Negative (Negative) 12/22/20 22:28 Urine Glucose (UA) Negative (Negative) 12/22/20 22:28 Urine Ketones Trace (Negative) H 12/22/20 22:28 Urine Blood Negative (Negative) 12/22/20 22:28 Urine Nitrite Negative (Negative) 12/22/20 22:28 Urine Bilirubin Negative (Negative) 12/22/20 22:28 Urine Urobilinogen Negative (Negative) 12/22/20 22:28 Ur Leukocyte Esterase Negative (Negative) 12/22/20 22:28 COVID-19 Eval Order Covid19 IDNow [facility] 12/22/20 21:15 SARS-CoV-2, RNA, NAAT NEGATIVE (NEGATIVE) 12/22/20 21:15 Diagnostic Findings [facility], [id number] CT Scan Report Patient: CHATO LEYVA Date: 12/22/20MR#: [id number]: [address] [facility] RDAcct ID:[id number]: Date: 1970[facility] Zip: [place] [address]Uhs: 50Location: EDSex: MRoom/Bed:Att Phy:Diagnosis: LEFT ABD PAINPri Phy: PCP,NOService Date: 12/22/20Fam Phy:Interpreting Phy: Wale Tran MDAdmit Phy: Ordering Phy: Nicolas Cleaning DO cc: ~ CT SCAN OF THE ABDOMEN AND PELVIS WITH IV CONTRAST CLINICAL HISTORY: Left lower quadrant abdominal pain. COMPARISON STUDY: No priors. TECHNIQUE: Following the IV administration of 119 cc of Optiray 320, CT scan of the abdomen and pelvis is performed from the lung bases to the proximal femora. Images are reviewed in the axial, sagittal, and coronal planes. IV contrast was administered without complication. A dose lowering technique was utilized adhering to the principles of ALARA. CT DOSE: 1854.67 mGy.cm FINDINGS: Lung bases: The heart is normal in size and without pericardial effusion. The lung bases are clear noting bibasilar atelectasis. Liver: The contrast-enhanced liver is enlarged, measuring 22.5 cm in length. The liver demonstrates diffusely diminished attenuation consistent with hepatic steatosis. There is no intrahepatic biliary ductal dilatation. The hepatic veins and portal veins are patent. Gallbladder: There are calcified gallstones with no CT evidence of acute cholecystitis. Spleen: Normal in size and attenuation. Pancreas: Unremarkable. Adrenal glands: Unremarkable. Kidneys: The contrast enhanced kidneys are normal in size and without hydronephrosis. The kidneys enhance symmetrically. A subcentimeter cortical hypodensity in the right lower pole likely represents a cyst but is too small for definitive characterization. Abdominal vasculature: The abdominal aorta is normal in course and caliber noting mild atherosclerotic calcification. Bowel: There is mild to moderate colonic diverticulosis. There is wall thickening with pericolonic inflammation and fluid involving the distal descending colon consistent with acute diverticulitis. No organized fluid collection is seen to indicate abscess. There is no bowel obstruction. A duodenal diverticulum is noted. The appendix is not identified and reported surgically absent. Peritoneum: Tiny foci of intraperitoneal free air are identified adjacent to the descending colon seen on image #331. There is trace free fluid in the pelvis. There is a small fat-containing umbilical hernia. Lymphadenopathy: None. Pelvic viscera: The bladder, prostate, and seminal vesicles are normal as imaged. Skeletal structures: No lytic or blastic lesions are seen. IMPRESSION: 1. There is mild to moderate colonic diverticulosis with evidence of acute diverticulitis of the distal descending colon. 2. Tiny foci of intraperitoneal free air are identified adjacent to the descending colon. 3. No organized fluid collection is seen to indicate abscess. 4. Hepatomegaly and hepatic steatosis. 5. Cholelithiasis. 6. Additional findings as above. ACT 112: Positive. There are findings on this exam that require communication between the performing entity and the patient following Patient Test Result Information Act ([place] Act 112) guidelines. Electronically signed by: Wale Tran M.D. 12/22/2020 7:57 PM Dictated: 12/22/201950Transcribed: 12/22/201950 Code Status & VTE Plan Code Status Full code VTE Prophylaxis Plan VTE Prophylaxis will be ordered: Yes PG Care Time/CCT Total # of Minutes Spent Total Time Spent with Patient: Total time spent is greater than 50% in coordination of care (as documented) at patient's floor/unit and/or counseling patient: Coding Level of Care Code 59552 Initial Inpt Care Lvl 2 Diagnoses Diverticulitis of intestine with perforation without bleeding K57.80 Free intraperitoneal air K66.8 Umbilical hernia K42.9 Duodenal diverticulum K57.10
[2020-12-22] MEDS ORDERED: ACETAMINOPHEN 325 MG TAB PO PRN (22:19)
[2020-12-22] MEDS ORDERED: ONDANSETRON INJ 2 MG/ML 2 ML VIAL IV PRN (22:19)
[2020-12-22] MEDS ORDERED: ACETAMINOPHEN 1,000 MG/100 ML VIAL IV PRN (22:19)
[2020-12-22 22:43] LABS: Appearance Urine Clear (Clear); Bilirubin Urine Negative (Negative); Blood Urine Negative (Negative); Color Urine Dark Yellow; Glucose Urine UA Negative (Negative); Ketones Urine Trace (Negative); Leukocyte Esterase Urine Negative (Negative); Nitrite Urine Negative (Negative); Protein Urine Negative (Negative); Specific Gravity Urine > 1.045 (1.000-1.030); Urobilinogen Urine Negative (Negative); pH Urine 6.5 (4.5-7.5)
[2020-12-22] MEDS: NSS + 20MEQ KCL 20 MEQ/1,000 ML BAG IV SCH (23:31)
[2020-12-22] MEDS: FAMOTIDINE 20 MG in SYRINGE 3 ML IV SCH (23:32)
[2020-12-23] MEDS: PIPERACILLIN/TAZOBACTAM 4.5 GM in DEXTROSE 5% 100 ML IV SCH ×3 (02:25→19:29)
[2020-12-23 07:13] LABS: iSTAT Creatinine 0.8 mg/dl (0.6-1.3); iSTAT Hemoglobin 15.6 g/dl (14.0-18.0); iSTAT Ionized Calcium 1.16 mmol/l (1.12-1.32); iSTAT Potassium 4.1 mmol/L (3.3-5.0)
[2020-12-23 07:26] LABS: Basophils # (auto) 0.01 K/uL (0-0.2); Basophils % (auto) 0.1 %; Eosinophils # (auto) 0.11 K/uL (0-0.5); Eosinophils % (auto) 1.1 %; Hematocrit (blood only) 41.4 % (42-52); Hemoglobin 14.1 g/dL (14.0-18.0); Immature Granulocytes # (auto) 0.01 K/uL (0.00-0.02); Immature Granulocytes % (auto) 0.1 %; Lymphocytes # (auto) 1.97 K/uL (1.2-3.4); Lymphocytes % (auto) 19.4 %; Mean Corpuscular Hemoglobin 30.1 pg (25-34); Mean Corpuscular Hgb Conc 34.1 g/dL (32-36); Mean Corpuscular Volume 88.5 fL (80-100); Mean Platelet Volume 10.1 fL (7.4-10.4); Monocytes # (auto) 1.04 K/uL (0.11-0.59); Monocytes % (auto) 10.2 %; Neutrophils # (auto) 7.01 K/uL (1.4-6.5); Neutrophils % (auto) 69.1 %; Platelet Count 262 K/uL (130-400); RDW Coefficient of Variation 13.8 % (11.5-14.5); RDW Standard Deviation 44.7 fL (36.4-46.3); Red Blood Count 4.68 M/uL (4.7-6.1); White Blood Count 10.15 K/uL (4.8-10.8)
[2020-12-23 07:55] LABS: Alanine Aminotransferase 15 U/L (12-78); Albumin Level 3.1 gm/dl (3.4-5.0); Aspartate Aminotransferase 7 U/L (15-37); Blood Urea Nitrogen 10 mg/dl (7-18); Calcium 8.8 mg/dl (8.5-10.1); Carbon Dioxide 24 mmol/L (21-32); Chloride 108 mmol/L (98-107); Est GFR (Non-African American) 101.8; Glucose 96 mg/dl (70-99); Sodium 138 mmol/L (136-145)
[2020-12-23 08:04] LABS: Albumin Globulin Ratio 0.8 (0.9-2); Alkaline Phosphatase 64 U/L (45-117); Bilirubin,Total 1.2 mg/dl (0.2-1); Total Protein 7.1 gm/dl (6.4-8.2)
--- NOTE | 2020-12-23 08:20 | Hospitalist Progress Note ---
Date of Service December 23, 2020 Assessment & Plan (1) Diverticulitis of intestine with perforation without bleeding: Moderate colonic diverticulosis/acute diverticulitis of distal descending colon/tiny foci of intraperitoneal free air adjacent to descending colon- Admit to [facility] + KCl 20 mEq 100 mils per hour Zosyn 4.5 g IV every 8 hours Famotidine 20 mg IV every 12 hours Consult general surgery if clinically worsens. Advance diet to clear liquids and continue monitoring tolerance of po intake. (2) Free intraperitoneal air: Doing well with improved symptoms advancing diet will continue to watch closely. Conside updated x-ray/CT scan if symptoms change along with consultation to general surgery (3) Umbilical hernia: (4) Duodenal diverticulum: (5) Hepatic steatosis: Seen on CT scan, to follow up with primary care was established (6) Cholelithiasis: Seen on CT scan, to follow up with primary care when established asymptomatic at this time. Admission and Anticipated Discharge Date Admission Date: December 22, 2020 Subjective Patient did well overnight No new concerns, pain is improved with IV fluids and antibiotics. No bowel movement but normal urination. No fevers chills nausea vomiting diarrhea Mild pain left lower quadrant Review of Systems Review of Systems: All systems reviewed & are unremarkable except as noted in Subjective Physical Exam Physical Exam: Constitutional: WD/WN, vitals as above Respiratory: Effort normal, CTA B/L CV: RRR, no murmur, no edema Abdomen: normal bowel sounds, mild left lower quadrant abdominal pain, no rebound or guarding Results & Data Results & Data ([facility]) Vital Signs (Past 12 Hours) Vital Signs Temp Pulse Pulse Resp BP BP Pulse Ox 12/23/20 07:47 36.7 C 79 16 117/69 96 12/22/20 22:31 36.8 C 109 H 20 138/90 12/22/20 21:53 95 H 18 154/91 H 97 12/22/20 20:20 98 H 18 137/89 98 Laboratory Results Laboratory Results - last 24 hr 12/22/20 12/22/20 12/22/20 19:06 19:06 19:23 WBC 13.73 H RBC 5.29 Hgb 16.2 POC Hgb 15.6 Hct 46.6 POC Hct 46 MCV 88.1 MCH 30.6 MCHC 34.8 RDW Std Deviation 44.4 RDW Coeff of Stef 13.7 Plt Count 291 MPV 10.1 Immature Gran % (Auto) 0.1 Neut % (Auto) 79.6 Lymph % (Auto) 10.8 [place] % (Auto) 9.0 Eos % (Auto) 0.4 Baso % (Auto) 0.1 Neut # (Auto) 10.94 H Lymph # (Auto) 1.48 [place] # (Auto) 1.23 H Eos # (Auto) 0.05 Baso # (Auto) 0.01 Immature Gran # (Auto) 0.02 POC Sodium 139 Sodium 137 POC Potassium 4.1 Potassium 4.1 POC Chloride 102 Chloride 106 Carbon Dioxide 25 POC Total CO2 26 Anion Gap 7.0 POC Anion Gap 16.0 POC BUN 9 BUN 9 Creatinine 1.01 POC Creatinine 0.8 Est Cr Clr Drug Dosing Not Reportable Est GFR ( Amer) 100.8 Est GFR (Non-Af Amer) 86.9 BUN/Creatinine Ratio 8.6 L Glucose 100 H POC Glucose (other) 102 H Calcium 9.4 POC Ioniz Calcium Mojgan 1.16 Total Bilirubin 1.1 H AST 10 L ALT 17 Alkaline Phosphatase 80 Total Protein 8.8 H Albumin 4.0 Globulin 4.8 H Albumin/Globulin Ratio 0.8 L Lipase 106 Urine Color Urine Appearance Urine pH Ur Specific [place] Urine Protein Urine Glucose (UA) Urine Ketones Urine Blood Urine Nitrite Urine Bilirubin Urine Urobilinogen Ur Leukocyte Esterase COVID-19 Eval Order SARS-CoV-2, RNA, NAAT 12/22/20 12/22/20 12/22/20 21:15 21:15 22:28 WBC RBC Hgb POC Hgb Hct POC Hct MCV MCH MCHC RDW Std Deviation RDW Coeff of Stef Plt Count MPV Immature Gran % (Auto) Neut % (Auto) Lymph % (Auto) [place] % (Auto) Eos % (Auto) Baso % (Auto) Neut # (Auto) Lymph # (Auto) [place] # (Auto) Eos # (Auto) Baso # (Auto) Immature Gran # (Auto) POC Sodium Sodium POC Potassium Potassium POC Chloride Chloride Carbon Dioxide POC Total CO2 Anion Gap POC Anion Gap POC BUN BUN Creatinine POC Creatinine Est Cr Clr Drug Dosing Est GFR ( Amer) Est GFR (Non-Af Amer) BUN/Creatinine Ratio Glucose POC Glucose (other) Calcium POC Ioniz Calcium Mojgan Total Bilirubin AST ALT Alkaline Phosphatase Total Protein Albumin Globulin Albumin/Globulin Ratio Lipase Urine Color Dark Yellow Urine Appearance Clear Urine pH 6.5 Ur Specific [place] > 1.045 H Urine Protein Negative Urine Glucose (UA) Negative Urine Ketones Trace H Urine Blood Negative Urine Nitrite Negative Urine Bilirubin Negative Urine Urobilinogen Negative Ur Leukocyte Esterase Negative COVID-19 [facility] SARS-CoV-2, RNA, NAAT NEGATIVE 12/23/20 12/23/20 06:38 06:38 WBC 10.15 RBC 4.68 L Hgb 14.1 POC Hgb Hct 41.4 L POC Hct MCV 88.5 MCH 30.1 MCHC 34.1 RDW Std Deviation 44.7 RDW Coeff of Stef 13.8 Plt Count 262 MPV 10.1 Immature Gran % (Auto) 0.1 Neut % (Auto) 69.1 Lymph % (Auto) 19.4 [place] % (Auto) 10.2 Eos % (Auto) 1.1 Baso % (Auto) 0.1 Neut # (Auto) 7.01 H Lymph # (Auto) 1.97 [place] # (Auto) 1.04 H Eos # (Auto) 0.11 Baso # (Auto) 0.01 Immature Gran # (Auto) 0.01 POC Sodium Sodium 138 POC Potassium Potassium 4.0 POC Chloride Chloride 108 H Carbon Dioxide 24 POC Total CO2 Anion Gap 6.0 POC Anion Gap POC BUN BUN 10 Creatinine 0.86 POC Creatinine Est Cr Clr Drug Dosing Not Reportable Est GFR ( Amer) 118.0 Est GFR (Non-Af Amer) 101.8 BUN/Creatinine Ratio 12.0 Glucose 96 POC Glucose (other) Calcium 8.8 POC Ioniz Calcium Mojgan Total Bilirubin 1.2 H AST 7 L ALT 15 Alkaline Phosphatase 64 Total Protein 7.1 Albumin 3.1 L Globulin 4.0 Albumin/Globulin Ratio 0.8 L Lipase Urine Color Urine Appearance Urine pH Ur Specific [place] Urine Protein Urine Glucose (UA) Urine Ketones Urine Blood Urine Nitrite Urine Bilirubin Urine Urobilinogen Ur Leukocyte Esterase COVID-19 Eval Order SARS-CoV-2, RNA, NAAT Medications Administered Current Inpatient Medications Acetaminophen (Acetaminophen 325 Mg Tab) 650 mg PO Q4H PRN PRN Reason: pain/fever Stop: 01/21/21 22:18 Piperacillin Sod/Tazobactam (Sod 4.5 gm/ Dextrose) 120 mls @ 30 mls/hr IV Q8H LISA; Protocol Stop: 01/02/21 01:59 Last Admin: 12/23/20 09:43 Dose: 30 mls/hr Documented by: Potassium Chloride/Sodium Chloride (Normal Saline W/20 Meq Kcl) 20 meq in 1,000 mls @ 100 mls/hr IV .Q10H LISA Stop: 01/21/21 22:18 Last Admin: 12/23/20 09:17 Dose: 100 mls/hr Documented by: Famotidine 20 mg/ Syringe 5 mls @ 2.5 mls/min IV Q12 LISA Stop: 01/21/21 22:18 Last Admin: 12/23/20 09:43 Dose: 2.5 mls/min Documented by: Acetaminophen (Ofirmev) 1,000 mg in 100 mls @ 400 mls/hr IV Q8H PRN PRN Reason: Pain or Fever Stop: 12/25/20 22:18 Miscellaneous Information (Piperacill/Tazobac Consult Active) 1 ea N/A UD PRN PRN Reason: Consult Stop: 01/21/21 22:18 Ondansetron HCl (Ondansetron Inj 2 Mg/Ml 2 Ml Vial) 4 mg IV Q6H PRN PRN Reason: Nausea Stop: 01/21/21 22:18 PG Care Time/CCT Total # of Minutes Spent Total Time Spent with Patient: Total time spent is greater than 50% in coordination of care (as documented) at patient's floor/unit and/or counseling patient: Coding Level of Care Code 13929 Subseq Hosp Care Lvl 2 Diagnoses Diverticulitis of intestine with perforation without bleeding K57.80 Free intraperitoneal air K66.8 Umbilical hernia K42.9 Duodenal diverticulum K57.10 Hepatic steatosis K76.0 Cholelithiasis K80.20
[2020-12-23] MEDS: NSS + 20MEQ KCL 20 MEQ/1,000 ML BAG IV SCH (09:17)
[2020-12-23] MEDS: FAMOTIDINE 20 MG in SYRINGE 3 ML IV SCH ×2 (09:43→21:30)
[2020-12-24] MEDS: PIPERACILLIN/TAZOBACTAM 4.5 GM in DEXTROSE 5% 100 ML IV SCH ×3 (03:26→17:42)
[2020-12-24 05:55] LABS: Basophils # (auto) 0.02 K/uL (0-0.2); Basophils % (auto) 0.2 %; Eosinophils # (auto) 0.26 K/uL (0-0.5); Eosinophils % (auto) 3.1 %; Hematocrit (blood only) 42.6 % (42-52); Hemoglobin 14.3 g/dL (14.0-18.0); Immature Granulocytes # (auto) 0.02 K/uL (0.00-0.02); Immature Granulocytes % (auto) 0.2 %; Lymphocytes # (auto) 2.28 K/uL (1.2-3.4); Lymphocytes % (auto) 27.1 %; Mean Corpuscular Hemoglobin 29.9 pg (25-34); Mean Corpuscular Hgb Conc 33.6 g/dL (32-36); Mean Corpuscular Volume 88.9 fL (80-100); Monocytes # (auto) 0.73 K/uL (0.11-0.59); Monocytes % (auto) 8.7 %; Neutrophils # (auto) 5.11 K/uL (1.4-6.5); Neutrophils % (auto) 60.7 %; Platelet Count 268 K/uL (130-400); RDW Coefficient of Variation 13.3 % (11.5-14.5); RDW Standard Deviation 43.7 fL (36.4-46.3); Red Blood Count 4.79 M/uL (4.7-6.1); White Blood Count 8.42 K/uL (4.8-10.8)
[2020-12-24 06:32] LABS: Alanine Aminotransferase 14 U/L (12-78); Albumin Level 3.1 gm/dl (3.4-5.0); Aspartate Aminotransferase 9 U/L (15-37); BUN Creatinine Ratio 9.3 (10-20); Blood Urea Nitrogen 8 mg/dl (7-18); Calcium 8.8 mg/dl (8.5-10.1); Carbon Dioxide 27 mmol/L (21-32); Chloride 110 mmol/L (98-107); Est GFR (African American) 115.8; Est GFR (Non-African American) 99.9; Glucose 94 mg/dl (70-99); Potassium 4.1 mmol/L (3.5-5.1); Sodium 140 mmol/L (136-145)
[2020-12-24 06:35] LABS: Albumin Globulin Ratio 0.7 (0.9-2); Alkaline Phosphatase 60 U/L (45-117); Bilirubin,Total 0.7 mg/dl (0.2-1); Globulin 4.2 gm/dl (2.5-4.0); Total Protein 7.3 gm/dl (6.4-8.2)
[2020-12-24] MEDS: FAMOTIDINE 20 MG in SYRINGE 3 ML IV SCH ×2 (09:20→19:30)
[2020-12-24] MEDS: CHOLECALCIFEROL 1,000 UNITS 25 MCG TAB PO SCH (13:06)
--- NOTE | 2020-12-24 13:06 | Hospitalist Progress Note ---
Date of Service December 24, 2020 Assessment & Plan (1) Diverticulitis of intestine with perforation without bleeding: Moderate colonic diverticulosis/acute diverticulitis of distal descending colon/tiny foci of intraperitoneal free air adjacent to descending colon- Tolerating full liquids. Advance to soft, low residue diet for dinner. Pain resolved. IVF discontinued. Continue famotidine 20mg IV q12. Zofran PRN. Possible d/c home tomorrow if tolerating diet. (2) Free intraperitoneal air: Doing well with improved symptoms. Advance to soft diet for dinner. Conside updated x-ray/CT scan if symptoms change along with consultation to general surgery (3) Umbilical hernia: No evidence of incarcerated hernia. Can pursue follow-up with primary care once established. (4) Duodenal diverticulum: (5) Hepatic steatosis: Seen on CT scan. No elevation in AST/ALT. Establish primary care for follow-up as an outpatient. (6) Cholelithiasis: Seen on CT scan. No evidence of acute cholecystitis. Establish primary care for follow-up as an outpatient. (7) Vitamin D deficiency: Vitamin D noted to be 15 in January 2019. Patient reports he has never been treated. Repeated this AM and was 13. Will initiate Vit D3 1000 units daily. Rx needed on discharge. Follow as an outpatient once PCP established. Admission and Anticipated Discharge Date Admission Date: December 22, 2020 Subjective 50 yo male admitted with diverticulitis. Patient denies any pain or n/v this morning. He is tolerating full liquids well. He denies any BMs, but states he has been passing flatus. He has no other complaints today. Patient is not currently established with a PCP. Review of Systems Constitutional: no fever and no chills Eyes: no worsening vision Ear, Nose, Mouth, Throat: no dizziness Respiratory: no dyspnea Cardiovascular: no chest pain Gastrointestinal: no abdominal pain, no nausea and no vomiting Genitourinary: no dysuria Psychiatric: no confusion Physical Exam Physical Exam: Temp Pulse Resp BP Pulse Ox 36.4 C L 71 18 119/75 95 12/24/20 07:48 12/24/20 07:48 12/24/20 07:48 12/24/20 07:48 12/24/20 07:48 Patient is afebrile. Vital signs stable. Constitutional: + obese; no acute distress ENMT: Ears: no hearing impairment Neck: trachea midline, no thyromegaly Respiratory: normal respiratory effort, lungs clear to auscultation Cardiovascular: RRR, no murmur, no edema Gastrointestinal (Abdomen): Inspection/Auscultation: normal bowel sounds Percussion/Palpation: abdomen soft; abdomen nontender Psychiatric: A+Ox3, euthymic affect Lymphatic: no cervical or axillary lymphadenopathy Results & Data Results & Data ([facility]) Vital Signs (Past 12 Hours) Vital Signs Temp Pulse Resp BP Pulse Ox 12/24/20 07:48 36.4 C L 71 18 119/75 95 PG Care Time/CCT Total # of Minutes Spent Total Time Spent with Patient: Total time spent is greater than 50% in coordination of care (as documented) at patient's floor/unit and/or counseling patient: Coding Level of Care Code 68025 Subseq Hosp Care Lvl 2 History Expanded Problem Focused Exam Expanded Problem Focused Diagnoses Diverticulitis of intestine with perforation without bleeding K57.80 Free intraperitoneal air K66.8 Umbilical hernia K42.9 Duodenal diverticulum K57.10 Hepatic steatosis K76.0 Cholelithiasis K80.20 Vitamin D deficiency E55.9
[2020-12-25] MEDS: PIPERACILLIN/TAZOBACTAM 4.5 GM in DEXTROSE 5% 100 ML IV SCH ×2 (03:03→09:16)
[2020-12-25 06:34] LABS: Basophils # (auto) 0.02 K/uL (0-0.2); Basophils % (auto) 0.3 %; Eosinophils # (auto) 0.32 K/uL (0-0.5); Eosinophils % (auto) 4.3 %; Hematocrit (blood only) 41.4 % (42-52); Hemoglobin 14.2 g/dL (14.0-18.0); Immature Granulocytes # (auto) 0.01 K/uL (0.00-0.02); Immature Granulocytes % (auto) 0.1 %; Lymphocytes # (auto) 2.42 K/uL (1.2-3.4); Lymphocytes % (auto) 32.2 %; Mean Corpuscular Hemoglobin 30.2 pg (25-34); Mean Corpuscular Hgb Conc 34.3 g/dL (32-36); Mean Corpuscular Volume 88.1 fL (80-100); Monocytes # (auto) 0.78 K/uL (0.11-0.59); Monocytes % (auto) 10.4 %; Neutrophils # (auto) 3.96 K/uL (1.4-6.5); Neutrophils % (auto) 52.7 %; Platelet Count 303 K/uL (130-400); RDW Coefficient of Variation 13.1 % (11.5-14.5); RDW Standard Deviation 42.2 fL (36.4-46.3); White Blood Count 7.51 K/uL (4.8-10.8)
[2020-12-25 07:16] LABS: Alanine Aminotransferase 16 U/L (12-78); Albumin Level 3.3 gm/dl (3.4-5.0); Alkaline Phosphatase 61 U/L (45-117); Aspartate Aminotransferase 13 U/L (15-37); BUN Creatinine Ratio 10.1 (10-20); Bilirubin,Total 0.7 mg/dl (0.2-1); Blood Urea Nitrogen 11 mg/dl (7-18); Carbon Dioxide 27 mmol/L (21-32); Chloride 108 mmol/L (98-107); Est GFR (African American) 91.9; Est GFR (Non-African American) 79.3; Glucose 86 mg/dl (70-99); Sodium 141 mmol/L (136-145)
[2020-12-25 07:18] LABS: Albumin Globulin Ratio 0.7 (0.9-2); Globulin 4.4 gm/dl (2.5-4.0); Total Protein 7.7 gm/dl (6.4-8.2)
--- NOTE | 2020-12-25 08:19 | Hospitalist Progress Note ---
Date of Service December 25, 2020 Assessment & Plan Admission and Anticipated Discharge Date Admission Date: December 22, 2020 Results & Data Results & Data ([facility]) Vital Signs (Past 12 Hours) Vital Signs Temp Pulse Resp BP Pulse Ox 12/25/20 07:12 36.4 C L 72 16 124/76 96 12/24/20 22:54 36.6 C 82 16 127/86 95 Laboratory Results 12/25/20 12/25/20 12/24/20 Range/Units 05:29 05:29 07:55 WBC 7.51 (4.8-10.8) K/uL RBC 4.70 (4.7-6.1) M/uL Hgb 14.2 (14.0-18.0) g/dL Hct 41.4 L (42-52) % MCV 88.1 (80-100) fL MCH 30.2 (25-34) pg MCHC 34.3 (32-36) g/dL RDW Std Deviation 42.2 (36.4-46.3) fL RDW Coeff of Stef 13.1 (11.5-14.5) % Plt Count 303 (130-400) K/uL MPV 10.0 (7.4-10.4) fL Immature Gran % (Auto) 0.1 % Neut % (Auto) 52.7 % Lymph % (Auto) 32.2 % [place] % (Auto) 10.4 % Eos % (Auto) 4.3 % Baso % (Auto) 0.3 % Neut # (Auto) 3.96 (1.4-6.5) K/uL Lymph # (Auto) 2.42 (1.2-3.4) K/uL [place] # (Auto) 0.78 H (0.11-0.59) K/uL Eos # (Auto) 0.32 (0-0.5) K/uL Baso # (Auto) 0.02 (0-0.2) K/uL Immature Gran # (Auto) 0.01 (0.00-0.02) K/uL Sodium 141 (136-145) mmol/L Potassium 4.0 (3.5-5.1) mmol/L Chloride 108 H (98-107) mmol/L Carbon Dioxide 27 (21-32) mmol/L Anion Gap 6.0 (3-11) BUN 11 (7-18) mg/dl Creatinine 1.09 (0.6-1.4) mg/dl Est Cr Clr Drug Dosing Not Reportable Est GFR ( Amer) 91.9 Est GFR (Non-Af Amer) 79.3 BUN/Creatinine Ratio 10.1 (10-20) Glucose 86 (70-99) mg/dl Calcium 9.0 (8.5-10.1) mg/dl Total Bilirubin 0.7 (0.2-1) mg/dl AST 13 L (15-37) U/L ALT 16 (12-78) U/L Alkaline Phosphatase 61 (45-117) U/L Total Protein 7.7 (6.4-8.2) gm/dl Albumin 3.3 L (3.4-5.0) gm/dl Globulin 4.4 H (2.5-4.0) gm/dl Albumin/Globulin Ratio 0.7 L (0.9-2) 25-OH Vitamin D Total 13.0 L (30-100) ng/ml PG Care Time/CCT Total # of Minutes Spent Total Time Spent with Patient: Total time spent is greater than 50% in coordination of care (as documented) at patient's floor/unit and/or counseling patient: Coding
[2020-12-25] MEDS: CHOLECALCIFEROL 1,000 UNITS 25 MCG TAB PO SCH (09:11)
[2020-12-25] MEDS: FAMOTIDINE 20 MG in SYRINGE 3 ML IV SCH (09:12)
--- NOTE | 2020-12-25 10:46 | Discharge Summary ---
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 He completed his job there, and traveled back to [place] last evening, where he continued to have pain that was worse with movement. When he awoke this morning, the pain was persistent, and came to the ED this evening for evaluation. He reports having 1 piece of pizza last evening, and had half a bowl of cereal this morning. He had no previous occurrence of the symptoms. He has had no associated fevers or chills, nausea or vomiting, or blood in stool. Work-up in the emergency department included a CT scan of abdomen and pelvis which showed mild to moderate colonic diverticulosis with evidence of acute diverticulitis of the distal descending colon, with a tiny foci of intraperitoneal free air identified adjacent to the descending colon. There was also hepatomegaly and hepatic steatosis, and cholelithiasis. There is also noted a duodenal diverticulum, and fat-containing umbilical hernia. Significant laboratories: WBC 13.73 with left shift, glucose 100, total bilirubin 1.1, and COVID-19 negative. Admission Exam Per Admitting Provider The patient is awake, alert and oriented 3, well developed and well nourished, normocephalic and atraumatic, lying in bed and in no acute distress. HEENT--PERRL, EOMI, mucous membranes and oropharynx mildly dry. Neck--supple. No JVD. No bruits. Thyroid normal, trachea midline, no adenopathy. Heart--normal S1 and S2. No murmurs, rubs or gallops. Lungs--clear bilaterally, no respiratory distress, no accessory muscle use. Abdomen--normal bowel sounds and soft. Tender left lower quadrant. Nondistended Extremities--no cyanosis or clubbing. No edema. Dermatologic--normal skin turgor, normal color, no abnormal lymph nodes, no rash. Neurologic--cranial nerves II through XII grossly intact. Rheumatologic--normal range of motion. Psychiatric--normal affect. Principal Diagnosis Acute Diverticulitis Discharge Exam Constitutional + obese; no acute distress Eyes + anicteric sclerae and PERRL ENMT Ears: no hearing impairment Neck trachea midline, no thyromegaly Respiratory normal respiratory effort, lungs clear to auscultation Cardiovascular RRR, no murmur, no edema Gastrointestinal (Abdomen) Inspection/Auscultation: normal bowel sounds Percussion/Palpation: abdomen soft; abdomen nontender Musculoskeletal no cyanosis or clubbing, extremities motor strength 5/5 Skin no rashes, warm and dry Neurologic patellar DTR's 2+ bilat, sensation intact and PERRL, EOMI, accommodation nl, no face palsy, no dysarthria Psychiatric A+Ox3, euthymic affect Lymphatic no cervical or axillary lymphadenopathy Discharge Data Allergies Allergy/AdvReac Type Severity Reaction Status Date / Time No Known Allergies Allergy Unknown Verified 12/22/20 20:36 Consultations 12/22/20 20:06 ED Decision to Admit Stat 12/24/20 13:06 Consult Case Management - Discharge Planning Routine Ordered Studies 12/22/20 19:01 CT abd pelvis IV con only Stat Hospital Course (1) Diverticulitis of intestine with perforation without bleeding: Moderate colonic diverticulosis/acute diverticulitis of distal descending colon/tiny foci of intraperitoneal free air adjacent to descending colon- Managed conservatively with IVF, pain control, antiemetics Zosyn IV while inpatient and sent on Cipro/Flagyl to complete 10 day course Set up with new PCP to establish care and will need c-scope as outpatient once c urrent episode resolved Tolerated low fiber diet -- to continue for 2 weeks post-discharge WBC normalized. Afebrile.VSS (2) Free intraperitoneal air: Doing well with improved symptoms advancing diet will continue to watch closely. No further abdominal pain -- to follow up with PCP at discharge to establish care as above (3) Umbilical hernia: (4) Duodenal diverticulum: (5) Hepatic steatosis: Seen on CT scan, to follow up with primary care was established (6) Cholelithiasis: Seen on CT scan, to follow up with primary care when established asymptomatic at this time. Vitamin D deficiency Found to be low. Placed on replacement and continued at discharge. To f/u with PCP Discharged home with antibiotics and vitamin D supplementation. 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 Total Time Total Time Spent Total Time Spent (In Minutes): 60 Discharge Plan Discharge Items Patient Disposition: Home - Self-Care Reason For Visit: DIVERTICULITIS WITH MICROPERFORATION Discharge Diagnosis: Diverticulitis Condition on Discharge: Good Goals: You have been hospitalized for an acute medical problem. During your stay at [facility], we have made an effort to correct the problem that brought you to the hospital while keeping you as comfortable as possible. Medications were used to bring your condition under control and your discharge instructions will include directions for any medications you should take after leaving the hospital. Please make sure you see your Primary Care Provider as part of your follow up plan. Activity: Resume your previous activity Non-emergency contact: Primary Care Provider and Public Finance Specialist Call non-emergency contact if: you have any medication questions, your symptoms worsen and your pain is not controlled Follow-up/Referrals: Ace Johnson MD [Physician] - 12/27/20 10:50 am (this week) PCP,NO [Primary Care Provider] - Diet: Low Fiber Addtl Attending Provider Instructions: You have been hospitalized for abdominal pain and found to have acute diver ticulitis. You have been treated conservatively with antibioitics, pain control, and nausea medication. You have continued to make improvements and should continue a low fiber diet for next two weeks and then advance as tolerated. You will continue on Ciprofloxacin/Metronidazole to complete a course of 10 days of treatment. You have completed 2.5 days and have an additional 7.5 days left of treatment. Please take all as prescribed and avoid alcohol as discussed while on these medications. You will need to have a follow up colonoscopy in 2 months as discussed and have been set up with a PCP to establish care which will hopefully be this week given your occupation. Your vitamin D level was also found to be low and you have been started on supplementation, which should continue at discharge. 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 You were also found to have stones in your gallbladder, but no evidence of acute infection at this time. Please return to the emergency department with any worsening pain, fevers, or for any symptoms that are concerning for you. It has been a pleasure being a part of the medical team providing for you while you have been in the hospital. Take care! Pending Studies at Discharge: No Stand-Alone Forms: My [facility], Work/School Release (Inpt), Smoking Cessation Medications and DC Order Prescriptions: New cholecalciferol (vitamin D3) 25 mcg (1,000 unit) Capsule 1,000 unit PO QAM 30 Days Qty: 30 RF: 1 ciprofloxacin HCl 500 mg tablet 500 mg PO Q12H 8 Days Qty: 15 RF: 0 metronidazole 500 mg tablet 500 mg PO Q8H 8 Days Qty: 22 RF: 0 Discharge Orders: Discharge Order (Routine); Ordered 12/25/20 Ordered By: Opal Vargas/Other Patient Handouts: Low-Fiber Diet Admission Data Admit Date/Time: 12/22/20 20:48 Attending Provider: Genie Dominguez Admit Provider: Ollie Triplett Primary Care Provider: PCP,NO Other Providers: Devonte Allan Other Interventions: Discharge Summary Assessment (RN) Last Done: 12/25/20 11:34 Supervising Physician Co-Signing Physician Notes PA Supervision Note: I personally saw and examined the patient. I verified all vu points and agree with NINO Chen with the following exceptions and/or additions: Pt doing very well, no further abd pain, padma po, moving bowels and nonbloody. VSS NAD, AAOx3 RRR no mgr CTAB no wcr Abd +BS soft NT ND Ext no edema or calf pain labs reviewed 50 yo M here with acute diverticulitis with microperf, doing great, stable for dc to home on po abx, low fiber diet, needs colonoscopy in 6 weeks, outpt PCP f./u Coding Level of Care Code D/C Day Management >30 mins Diagnoses Diverticulitis of intestine with perforation without bleeding K57.80 Free intraperitoneal air K66.8 Umbilical hernia K42.9 Duodenal diverticulum K57.10 Hepatic steatosis K76.0 Cholelithiasis K80.20
== END 2020-12-25 14:24 | disposition home or self-care (01) | DRG 392 ==
LOC: ED 16:52 → SUATTDRO 20:48 → 3W 20:48